=== PATIENT | male | born 1975 | race Caucasian/White ===

== ENCOUNTER → 2023-11-07 | Outpatient (CLI) | payer OTHER ==
--- NOTE | 2023-11-07 13:16 | XR ---
EXAMINATION TYPE: XR cervical spine comp DATE OF EXAM: 11/07/2023 COMPARISON: NONE HISTORY: Pain TECHNIQUE: Four views are submitted. FINDINGS: The odontoid is intact. There are no compression deformities. The prevertebral soft tissue structur es are within normal limits. Slight curvature of the spine reversal of the normal cervical lordosis w ith multilevel moderate to severe degenerative disc disease and hypertrophic changes. Emphysematous c hanges in the lungs. Multilevel foraminal encroachment. IMPRESSION: 1. Moderate to severe multilevel degenerative disc disease and multilevel foraminal encroachment. Rec ommend follow-up MRI. 2. Reversal of normal cervical lordosis can occur with muscular spasm..
--- NOTE | 2023-11-07 13:17 | XR ---
EXAMINATION TYPE: XR thoracic spine complete DATE OF EXAM: 11/07/2023 COMPARISON: NONE HISTORY: Pain TECHNIQUE: 3 views submitted FINDINGS: Alignment is anatomic. There is no compression deformities. Curvature of the spine with multilevel d egenerative disc disease. Mild demineralization. IMPRESSION: 1. Curvature of the spine with mild generalized demineralization and mild multilevel degenerative dis c disease
== END | disposition home or self-care (01) ==
LOC: RADXRMAIN 12:27
PROVIDERS: ATTEND Emergency Medicine
DX: S23.3XXA Sprain of ligaments of thoracic spine, initial encounter (principal); S13.4XXA Sprain of ligaments of cervical spine, initial encounter; M51.34 Other intervertebral disc degeneration, thoracic region; M50.30 Other cervical disc degeneration, unspecified cervical region; M99.71 Connective tissue and disc stenosis of intervertebral foramina of cervical region
CPT/HCPCS: 72050; 72072

== ENCOUNTER 2024-02-25 11:10 | Emergency (ER) | payer OTHER ==
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
[2024-02-25] MEDS: diphenhydrAMINE 50 MG/ML 1 ML VIAL IM STA (12:18)
--- NOTE | 2024-02-25 12:26 | XR ---
EXAMINATION TYPE: XR chest 2V DATE OF EXAM: 02/25/2024 12:09 PM CLINICAL INDICATION:Male, 48 years old with history of cough; COMPARISON: Chest radiographs from TECHNIQUE: XR chest 2V Frontal view of the chest. FINDINGS: Lungs/Pleura: There is no evidence of pleural effusion, focal consolidation, or pneumothorax. Pulmonary vascularity: Unremarkable. Heart/mediastinum: Cardiomediastinal silhouette is unremarkable. Musculoskeletal: No acute osseous pathology. Other findings: None Lines/Tubes: IMPRESSION: No acute cardiopulmonary disease/process.
[2024-02-25 13:34] VITALS: BP 125/91; PULSE 77; RESP 16; TEMP 97.8
== END 2024-02-25 13:34 | disposition home or self-care (01) ==
LOC: EC 11:10
DX: L25.9 Unspecified contact dermatitis, unspecified cause (principal); R51.9 Headache, unspecified; R05.9 Cough, unspecified; F17.200 Nicotine dependence, unspecified, uncomplicated
CPT/HCPCS: 71046; 99284; 96372; J1200

== ENCOUNTER 2024-08-22 14:15 | Emergency (ER) | payer OTHER ==
[2024-08-22 14:34] VITALS: RESP 18
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
--- NOTE | 2024-08-22 15:42 | XR ---
EXAMINATION TYPE: XR chest 2V DATE OF EXAM: 08/22/2024 3:16 PM COMPARISON: None. CLINICAL INDICATION: Male, 49 years old with history of cough, TECHNIQUE: XR chest 2V view(s) obtained. FINDINGS: The heart size is normal. The pulmonary vasculature is normal. Some minimal linear opacities at the left lung base. Correlate for atelectasis.. IMPRESSION: 1. Mild atelectatic changes left lung base. [facility], , 08/22/2024 3:40 PM
[2024-08-22 15:44] LABS: Influenza A Not Detected (Not Detectd); Influenza B Not Detected (Not Detectd); RSV Detected (Not Detectd)
[2024-08-22 16:02] VITALS: BP 138/76; PULSE 73; TEMP 98
== END 2024-08-22 16:02 | disposition home or self-care (01) ==
LOC: EC 14:15
DX: R05.9 Cough, unspecified (principal); R09.81 Nasal congestion; B97.4 Respiratory syncytial virus as the cause of diseases classified elsewhere; F17.200 Nicotine dependence, unspecified, uncomplicated
CPT/HCPCS: 71046; 87636; 99283